=== PATIENT | female | born 1955 | race African-American/Black ===

== ENCOUNTER → 2017-07-28 | Outpatient (CLI) | payer BC ==
--- NOTE | 2017-07-29 16:38 | WOMENS IMAGING REPORT ---
EXAM DESCRIPTION: 3D SCREENING MAMMO BILAT COMPLETED DATE/TIME: 07/28/2017 3:12 pm REASON FOR STUDY: ROUTINE SCREENING; Z12.31 Z12.31 ENCNTR SCREEN MAMMOGRAM FOR MALIGNANT NEOPLASM O F RANCHO COMPARISON: 2010 TECHNIQUE: Standard craniocaudal and mediolateral oblique views of each breast recorded using digita l acquisition and breast tomosynthesis. LIMITATIONS: None. FINDINGS: No masses, calcifications or architectural distortion. No areas of suspicion. Read with the assistance of CAD. .[facility] - R2 Cenova Version 1.3 .[facility] - R2 Cenova Version 1.3 .[facility] - R2 Cenova Version 2.[address] - R2 Cenova Version 2.4 .[facility] - R2 Bright Cutter Version 9.2 IMPRESSION: NORMAL MAMMOGRAM. BIRADS 1. BREAST DENSITY: b. There are scattered areas of fibroglandular density. BIRAD: 1 NEGATIVE RECOMMENDATION: ROUTINE SCREENING COMMENT: The patient has been notified of the results by letter per SA requirements. Additional no tification policies are in place for contacting patient with suspicious or incomplete findings. Quality ID #225: The [employer] recommends an annual screening mammogram for women aged 40 years or over. This facility utilizes a reminder system to ensure that all patients receive reminder letters, and/or direct phone calls for appointments. This includes reminders for routine scr eening mammograms, diagnostic mammograms, or other Breast Imaging Interventions when appropriate. Th is patient will be placed in the appropriate reminder system. The [employer] (ACR) has developed recommendations for screening MRI of the breast s in certain patient populations, to be used in conjunction with mammography. Breast MRI surveillanc e may be appropriate for women with more than 20% lifetime risk of developing breast cancer as deter mined by genetic testing, significant family history of the disease, or history of mantle radiation f or Hodgkins Disease. ACR Practice Guidelines 2008. DBT Technology DBT is a type of tomographic mammography. With conventional mammography, overlapping breast tissue ma y make lesions difficult to detect, even with good compression. DBT uses an x-ray tube that rotates a round the breast, taking images at different angles. These images are then combined to create thin sl ices of the breast that the radiologist can view as a 3D reconstruction. The [employer] unit can perform full-field digital mammograms (2D imaging); or DBT (3D imaging); or both, in a combination mode that quickly performs both the mammogram and the tomosynthesis scan while the breast is still compressed. PQRS 6045F: Fluoroscopic imaging is not utilized for breast tomosynthesis. TECHNICAL DOCUMENTATION: FINDING NUMBER: (1) ASSESSMENT: (1) JOB ID: [id number] [employer]- All Rights Reserved Reading location - IP/workstation name: [email or web address]
== END ==
LOC: WI 14:37
PROVIDERS: ATTEND Internal Medicine
DX: Z12.31 Encounter for screening mammogram for malignant neoplasm of breast (principal)
CPT/HCPCS: 77063; 77067

== ENCOUNTER → 2017-12-22 | Outpatient (CLI) | payer BC ==
--- NOTE | 2017-12-22 15:21 | RADIOLOGY REPORT (SQ) ---
EXAM DESCRIPTION: U/S RETROPERITON (RENAL/AORTA) COMPLETED DATE/TIME: 12/22/2017 2:18 pm REASON FOR STUDY: ABNORMAL KIDNEY FUNCTION R94.4 ABNORMAL RESULTS OF KIDNEY FUNCTION STUDIES COMPARISON: None. TECHNIQUE: Dynamic and static grayscale images acquired of the kidneys and bladder and recorded on P ACS. Additional selected color Doppler and spectral images recorded. LIMITATIONS: None. FINDINGS: RIGHT KIDNEY: Normal size. Normal echogenicity. No solid or suspicious masses. No hydronep hrosis. No calcifications. LEFT KIDNEY: Normal size. Normal echogenicity. No solid or suspicious masses. No hydronephrosis. No calcifications. BLADDER: Decompressed, not evaluated. OTHER FINDINGS: No other significant finding. IMPRESSION: Normal appearance of the bilateral kidneys. TECHNICAL DOCUMENTATION: JOB ID: [id number] [employer]- All Rights Reserved Reading location - IP/workstation name: TECH[employer] [email or web address]
== END ==
LOC: RAD 13:38
PROVIDERS: ATTEND Internal Medicine
DX: R94.4 Abnormal results of kidney function studies (principal)
CPT/HCPCS: 76770

== ENCOUNTER 2018-09-06 12:29 | Observation (INO) | payer BC ==
--- NOTE | 2018-09-06 13:05 | ER Document Report ---
ED Medical Screen (RME) - General Chief Complaint: Shortness Of Breath Stated Complaint: BLOOD PRESSURE ISSUE Time Seen by Provider: 09/06/18 12:56 Primary Care Provider: STEFANIA SNIDER MD [Primary Care Provider] - Follow up as needed TRAVEL OUTSIDE OF THE [place]. IN LAST 30 DAYS: No - HPI Notes: 09/06/18 13:02 Patient is a 63-year-old female with a history of hypertension, CVA, and type 2 diabetes who presents to the emergency department complaining of left-sided headache, elevated blood pressure, and left-sided chest pain that began 2 hours ago. Patient reports having headaches before, but this 1 is worse than usual. Pain does not radiate. Patient states that she does feel some shortness of breath associated. She did take her medicines this morning. Patient states that her blood pressure has improved when she had it checked at the [facility] today. Denies RAY, fever, neck pain, URI, CP, SOB, Abd pain, n/v, diaphoresis, or rash. I have treated and performed a rapid initial assessment of this patient. A comprehensive ED assessment and evaluation of the patient, analysis of test results and completion of medical decision making process will be conducted by additional ED providers. PHYSICAL EXAMINATION: GENERAL: Well-appearing, well-nourished and in no acute distress. A&Ox4. Answers questions appropriately. HEAD: Atraumatic, normocephalic. Non-tender. EYES: Pupils equal round and reactive to light, extraocular movements intact, sclera anicteric, conjunctiva are normal. No nystagmus. ENT: Nares patent and without discharge. oropharynx clear without exudates. No tonsilar hypertrophy or erythema. Moist mucous membranes. NECK: Normal range of motion, supple without lymphadenopathy. No rigidity/meningismus. No midline tenderness. LUNGS: Breath sounds clear to auscultation bilaterally and equal. No wheezes rales or rhonchi. HEART: Regular rate and rhythm without murmurs, rubs, gallops. ABDOMEN: Soft, nontender, nondistended abdomen. Musculoskeletal: Ext's b/l: FROM to passive/active. Strength 5+/5. No deficits noted. No bony tenderness of extremities. Extremities: No cyanosis, clubbing, or edema b/l. Peripheral pulses 2+. Capillary refill less than 2 seconds. No lower extremity asymmetry. Kajal negative bilaterally. NEUROLOGICAL: NIH 0. GCS 15. Cranial nerves grossly intact. Normal speech. Normal sensory, motor exams. Reflexes 2+ b/l. LOLY's negative. Pronator drift negative. Heel/loja, finger/nose wnl. PSYCH: Normal mood, normal affect. SKIN: Warm, Dry, normal turgor, no rashes or lesions noted. - Related Data Allergies/Adverse Reactions: No Known Allergies Allergy (Verified 04/05/17 10:46) Past Medical History - Past Medical History Cardiac Medical History: Reports: Hx Hypertension Denies: Hx Coronary Artery Disease, Hx Heart Attack Pulmonary Medical History: Reports: Hx Pneumonia Denies: Hx Asthma, Hx Bronchitis, Hx COPD, Hx Tuberculosis Neurological Medical History: Denies: Hx Cerebrovascular Accident, Hx Seizures Endocrine Medical History: Reports: Hx Diabetes Mellitus Type 2 Renal/ Medical History: Denies: Hx Peritoneal Dialysis GI Medical History: Musculoskeltal Medical History: Reports Hx Arthritis - hands Infectious Medical History: Past Surgical History: Reports: Hx Cholecystectomy, Hx Genitourinary Surgery, Hx Hysterectomy. Denies: Hx Pacemaker - Immunizations Hx Diphtheria, Pertussis, Tetanus Vaccination: Yes Physical Exam - Vital signs Vitals: Temp Pulse Resp BP Pulse Ox 98.0 F 69 16 146/82 H 97 09/06/18 12:43 09/06/18 12:43 09/06/18 12:43 09/06/18 12:43 09/06/18 12:43 Course - Vital Signs Vital signs: Temp Pulse Resp BP Pulse Ox 98.0 F 69 16 146/82 H 97 09/06/18 12:43 09/06/18 12:43 09/06/18 12:43 09/06/18 12:43 09/06/18 12:43 Doctor's Discharge - Discharge Referrals: STEFANIA SNIDER MD [Primary Care Provider] - Follow up as needed
--- NOTE | 2018-09-06 13:39 | RADIOLOGY REPORT (SQ) ---
EXAM DESCRIPTION: CHEST SINGLE VIEW COMPLETED DATE/TIME: 09/06/2018 1:27 pm REASON FOR STUDY: CP COMPARISON: 04/05/2017 TECHNIQUE: Single frontal radiographic view of the chest acquired. NUMBER OF VIEWS: One view. LIMITATIONS: None. FINDINGS: LUNGS AND PLEURA: No pneumothorax. No consolidation or pleural effusion. MEDIASTINUM AND HILAR STRUCTURES: Stable. HEART AND VASCULAR STRUCTURES: Stable. BONES: No acute findings. HARDWARE: None in the chest. OTHER: No other significant finding. IMPRESSION: NO ACUTE FINDINGS. TECHNICAL DOCUMENTATION: JOB ID: [id number] [place]-72 2010 [employer]- All Rights Reserved Reading location - IP/workstation name: [email or web address]
--- NOTE | 2018-09-06 13:46 | RADIOLOGY REPORT (SQ) ---
EXAM DESCRIPTION: CT HEAD WITHOUT COMPLETED DATE/TIME: 09/06/2018 1:35 pm REASON FOR STUDY: left RAY, h/o CVA COMPARISON: None. TECHNIQUE: Axial images acquired through the brain without intravenous contrast. Images reviewed wi th bone, brain and subdural windows. Additional sagittal and coronal reconstructions were generated. Images stored on PACS. All CT scanners at this facility use dose modulation, iterative reconstruction, and/or weight based d osing when appropriate to reduce radiation dose to as low as reasonably achievable (ALARA). [facility]: Dose Right [facility]: CareDose [facility]: Dose Right [facility]: Teradose 4D [facility]: Smart [employer] RADIATION DOSE: CT Rad equipment meets quality standard of care and radiation dose reduction techniq ues were employed. CTDIvol: 53.2 mGy. DLP: 1124 mGy-cm. mGy. LIMITATIONS: None. FINDINGS: VENTRICLES: Prominent. CEREBRUM: No masses. No hemorrhage. No midline shift. Areas of low density in the white matter mos t likely due to chronic micro-vascular ischemic change. No evidence for acute infarction. CEREBELLUM: No masses. No hemorrhage. No alteration of density. No evidence for acute infarction. EXTRAAXIAL SPACES: Mild age-related involutional change. No fluid collections. No masses. ORBITS AND GLOBE: No intra- or extraconal masses. Normal contour of globe without masses. CALVARIUM: No fracture. PARANASAL SINUSES: Mucosal thickening maxillary sinuses. SOFT TISSUES: No mass or hematoma. OTHER: No other significant finding. IMPRESSION: MILD CHRONIC CHANGES OF ATROPHY AND MICROVASCULAR ISCHEMIA. NO ACUTE PROCESS. EVIDENCE OF ACUTE STROKE: NO. TECHNICAL DOCUMENTATION: JOB ID: [id number] Quality ID # [id number]: Final reports with documentation of one or more dose reduction techniques (e.g., Au tomated exposure control, adjustment of the mA and/or kV according to patient size, use of iterative reconstruction technique) 2010 [email or web address]- All Rights Reserved Reading location - IP/workstation name: [email or web address]
[2018-09-06 14:16] LABS: ALANINE AMINOTRANSFERASE 30 U/L (9-52); ALBUMIN 4.3 g/dL (3.5-5.0); ALKALINE PHOSPHATASE 129 U/L (38-126); ANION GAP 11 (5-19); ASPARTATE AMINO TRANSFERASE 20 U/L (14-36); BILIRUBIN,DIRECT 0.3 mg/dL (0.0-0.4); BILIRUBIN,TOTAL 0.6 mg/dL (0.2-1.3); BLOOD UREA NITROGEN 23 mg/dL (7-20); CALCIUM 10.1 mg/dL (8.4-10.2); CARBON DIOXIDE 26 mmol/L (22-30); CHLORIDE 99 mmol/L (98-107); GLUCOSE 323 mg/dL (75-110); POTASSIUM 4.3 mmol/L (3.6-5.0); SODIUM 136.2 mmol/L (137-145); TOTAL PROTEIN 7.9 g/dL (6.3-8.2)
[2018-09-06 14:20] LABS: INTERNATIONAL RATION (INR) 0.89; PROTHROMBIN TIME 12.5 SEC (11.4-15.4)
[2018-09-06 14:21] LABS: PARTIAL THROMBOPLASTIN TIME 29.2 SEC (23.5-35.8)
[2018-09-06 14:23] LABS: ABSOLUTE EOSINOPHILS # (AUTO) 0.2 10^3/uL (0.0-0.6); ABSOLUTE MONOCYTES (AUTO) 0.4 10^3/uL (0.1-1.4); ABSOLUTE NEUT (AUTO) 5.9 10^3/uL (1.7-8.2); BASOPHILS % (AUTO) 0.6 % (0-2); EOSINOPHILS % (AUTO) 2.5 % (0-6); HEMATOCRIT 44.7 % (36.0-47.0); HEMOGLOBIN 14.6 g/dL (12.0-15.5); LYMPHOCYTES % (AUTO) 13.1 % (13-45); MEAN CORPUSCULAR HEMOGLOBIN 27.6 pg (27.0-33.4); MEAN CORPUSCULAR HGB CONC 32.6 g/dL (32.0-36.0); MEAN CORPUSCULAR VOLUME 85 fl (80-97); MONOCYTES % (AUTO) 4.9 % (3-13); PLATELET COUNT 204 10^3/uL (150-450); RED BLOOD COUNT 5.28 10^6/uL (3.72-5.28); RED CELL DISTRIBUTION WIDTH 13.9 % (11.5-14.0); SEGMENTED NEUTROPHILS % (AUTO) 78.9 % (42-78); TOTAL CELLS COUNTED % (AUTO) 100 %; WHITE BLOOD COUNT 7.5 10^3/uL (4.0-10.5)
[2018-09-06] MEDS ORDERED: DIAZEPAM INJ 10 MG/2 ML DISP.SYRIN IV ONE (15:19)
[2018-09-06] MEDS ORDERED: ONDANSETRON HCL INJ/PF 4 MG/2 ML SDV IV ONE (15:19)
[2018-09-06] MEDS ORDERED: NORMAL SALINE 1000 ML 1,000 ML IV ONE (15:20)
--- NOTE | 2018-09-06 15:34 | EKG REPORT ---
SEVERITY:- ABNORMAL ECG - SINUS RHYTHM LEFT VENTRICULAR HYPERTROPHY : Confirmed by: Sarbjit Koenig MD 06-Sep-2018 15:33:44
[2018-09-06] MEDS ORDERED: ACETAMINOPHEN 325 MG TABLET PO ONE (16:07)
[2018-09-06] MEDS ORDERED: KETOROLAC TROMETHAMINE INJ/PF 30 MG/1 ML SDV IV ONE (16:08)
[2018-09-06] MEDS ORDERED: MORPHINE SULFATE 10 MG/ML INJ IV ONE (17:26)
[2018-09-06] MEDS ORDERED: LIDOCAINE 1% INJ-PF (10 MG/ML) 30 ML SDV ONE (17:57)
[2018-09-06 19:40] LABS: APPEARANCE ALL TUBES CLEAR; COLOR ALL TUBES COLORLESS; CSF TOTAL VOLUME 4.5 CC; CSF TUBE NUMBER 1; VOLUME TUBE 1 1.5 CC
[2018-09-06 19:41] LABS: GLUCOSE,CSF 149 mg/dL (40-70); PROTEIN,CSF 60 mg/dL (12-60); RED BLOOD CELL,CSF 17 /uL (0-10); WHITE BLOOD CELL,CSF 2 /uL (0-5)
--- NOTE | 2018-09-06 19:46 | ER Document Report ---
ED General - General Mode of Arrival: Ambulatory Information source: Patient, Relative TRAVEL OUTSIDE OF THE [place] IN LAST 30 DAYS: No - HPI Onset: Other - Over 2 hours prior to arrival Quality of pain: No pain, Achy, Sharp, Stabbing Severity: Moderate Pain Level: 4 Associated symptoms: Chest pain, Nonproductive cough, Headache, Shortness of breath. denies: Earache Exacerbated by: Denies Relieved by: Denies Similar symptoms previously: Yes Recently seen / treated by doctor: No <WALDO RIBERA - Last Filed: 09/06/18 20:08> <SAMMIE DEGROOT - Last Filed: 09/07/18 01:02> <BIGG SANCHEZ - Last Filed: 09/07/18 11:37> - General Chief Complaint: Shortness Of Breath Stated Complaint: BLOOD PRESSURE ISSUE Time Seen by Provider: 09/06/18 12:56 Notes: Patient is a 63-year-old female comes emergency room with complaint of dizziness with headache that originated on the left side of the head. 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 The headaches seem to be on left-sided frontal only. She also started with some left-sided chest pain as well. She called her headache something is slightly unbelievable because it is different than the presentation of the rest of her headaches. She did not call it a thunderclap headache she did not call at the worst headache of her life she does call that not really believable. 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 Where she had no residual problem. states that when she was at [employer] and they checked her blood pressure that the bottom number was 400 but they do not remember what the reading was. She has a history of hypertension she has history of headaches that are usually handled with Tylenol. She also has a history of diabetes mellitus type 2. Patient when asked if she takes any type of anticoagulants she states she is supposed to be on aspirin a day but she might take it sometimes and other times she might not. She does not remember the last time she took the aspirin. The guesstimate of onset until the time presented is over 2 hours. (WALDO RIBERA) - Related Data Allergies/Adverse Reactions: No Known Allergies Allergy (Verified 04/05/17 10:46) Past Medical History - General Information source: Patient, Relative, [facility] Records - Social History Smoking Status: Never Smoker Cigarette use (# per day): No Chew tobacco use (# tins/day): No Smoking Education Provided: No Frequency of alcohol use: None Drug Abuse: None Lives with: Family Family History: Reviewed & Not Pertinent Patient has suicidal ideation: No Patient has homicidal ideation: No - Past Medical History Cardiac Medical History: Reports: Hx Hypertension Denies: Hx Coronary Artery Disease, Hx Heart Attack Pulmonary Medical History: Reports: Hx Pneumonia Denies: Hx Asthma, Hx Bronchitis, Hx COPD, Hx Tuberculosis Neurological Medical History: Denies: Hx Cerebrovascular Accident, Hx Seizures Endocrine Medical History: Reports: Hx Diabetes Mellitus Type 2 Renal/ Medical History: Denies: Hx Peritoneal Dialysis GI Medical History: Musculoskeletal Medical History: Reports Hx Arthritis - hands Infectious Medical History: Past Surgical History: Reports: Hx Cholecystectomy, Hx Genitourinary Surgery, Hx Hysterectomy. Denies: Hx Pacemaker - Immunizations Hx Diphtheria, Pertussis, Tetanus Vaccination: Yes Hx Pneumococcal Vaccination: 06/02/09 <WALDO RIBERA - Last Filed: 09/06/18 20:08> Review of Systems - Review of Systems Constitutional: No symptoms reported EENT: No symptoms reported Cardiovascular: See HPI, Chest pain Respiratory: See HPI, Short of breath Gastrointestinal: No symptoms reported Genitourinary: No symptoms reported Female Genitourinary: No symptoms reported Musculoskeletal: No symptoms reported Skin: No symptoms reported Hematologic/Lymphatic: No symptoms reported Neurological/Psychological: See HPI, Headaches -: Yes All other systems reviewed and negative <WALDO RIBERA - Last Filed: 09/06/18 20:08> Physical Exam - Vital signs Interpretation: Hypertensive <WALDO RIBERA - Last Filed: 09/06/18 20:08> - Vital signs Vitals: Temp Pulse Resp BP Pulse Ox 98.0 F 69 16 146/82 H 97 09/06/18 12:43 09/06/18 12:43 09/06/18 12:43 09/06/18 12:43 09/06/18 12:43 - Notes Notes: PHYSICAL EXAMINATION: GENERAL: Patient is well-nourished well-developed 63-year-old obese female who is in no apparent distress on physical exam today. Patient does appear to be somewhat uncomfortable and has having a hard time finding a position of comfort secondary to her headache. HEAD: Atraumatic, normocephalic. EYES: Pupils equal round and reactive to light, extraocular movements intact, conjunctiva are normal. ENT: Nares patent, oropharynx clear without exudates. Moist mucous membranes. NECK: Normal range of motion, supple without lymphadenopathy LUNGS: Breath sounds clear to auscultation bilaterally and equal. No wheezes rales or rhonchi. HEART: patient is a regular rate and rhythm or heart no murmurs appreciated on auscultation. Pulses are equal bilaterally ABDOMEN: examination patient's abdomen shows she has bowel sounds all 4 quads. She is non-tender in all 4 quads as well. Midepigastric mild tenderness is noted. There are no pulsatile masses appreciated on abdominal exam. Female : deferred Musculoskeletal: Normal range of motion, no pitting or edema. No cyanosis. NEUROLOGICAL: Cranial nerves grossly intact. Normal speech. Normal sensory, motor exams Patient's NIH score is 0. Patient swallow study was negative. PSYCH: Normal mood, normal affect. SKIN: Warm, Dry, normal turgor, no rashes or lesions noted. (WALDO RIBERA) Course - Laboratory Result Diagrams: 09/06/18 13:46 09/06/18 13:46 - Transfer of Care Care transferred to following provider: Sammie Degroot <WALDO RIBERA - Last Filed: 09/06/18 20:08> - Laboratory Result Diagrams: 09/06/18 13:46 09/06/18 13:46 <SAMMIE DEGROOT - Last Filed: 09/07/18 01:02> - Laboratory Result Diagrams: 09/06/18 13:46 09/06/18 13:46 <BIGG SANCHEZ - Last Filed: 09/07/18 11:37> - Re-evaluation Re-evalutation: 09/06/18 20:11 Patient stay here has been fairly unremarkable. I discussed the case with Dr. Arreola and she felt a spinal tap was necessary. I contacted the radiologist to see what she would prefer CT of the head or MRI MRA of the head and neck and he informed me that if the tap was negative then he would suggest the MRI MRA which we have and are waiting for. Reexamination patient shows that she is still complaining of some anterior chest pain we are repeating the cardiac enzymes and EKG again discussing the case with Dr. Lino check CT of the chest would be warranted to rule out any type of a dissection possibility as well. Patient is comfortable at this point. I have also written some fluids again more likely this time 250 since he is going back for CTA of the chest and renal functions were slightly off at 1.3 even though she received a liter of fluids already. I have handed off the patient to Sammie Degroot I have taken him in to meet the patient and he is stating done a physical examination. After his examination was complete I informed him that I have added the orders as mentioned above including some nitro sublingual for the chest pain. He will monitor patient closely and inform me of any changes per my personal benefit did not patient is doing. (WALDO RIBERA) 09/06/18 20:35 Care has been taken over of this patient at this time. Patient looks well at this time. She states that her headache has improved some. She does continue to have some chest pain. On exam she has slight weakness in the right upper extremity compared to the left which the patient tells me is her normal from previous CVA. The remainder of her neurological exam is normal. She has no pronator drift. She does still have some complaints of chest pain. Repeat EKG has been ordered. MRI, MRA of the head and neck showed no acute stroke, no bleeding, no dissection. There is some stenosis noted. CTA of the chest and abdomen has currently been ordered and currently pending at this time. CSF shows some RBCs, with a decreased from tube 1-4 and it was a traumatic tap. This is not consistent with subarachnoid hemorrhage. We will continue to monitor. 09/06/18 21:10 Repeat EKG shows a rate of 67, sinus rhythm. Left ventricular hypertrophy. There is no ST elevation or depression, no STEMI, no change from previous EKG done earlier today. 09/07/18 01:02 All of the patient's labs and imaging are negative for any significant findings. Patient denies any chest pain currently. She is no signs of acute stroke. This point believe the patient should be admitted to the hospital for further evaluation and management her chest pain. She will be admitted to the hospitalist for chest pain rule out. I discussed the case with the hospitalist who is accepted admission. (SAMMIE DEGROOT) 09/07/18 11:36 I did personally see and examine this 63 yo female patient who is complaining of a relatively rapid onset of a typical headache associated with chest pain. She does not have any focal neurologic deficits that are new from baseline. Patient complains of persistent dizziness though there is no evidence of dizziness on her exam or looking at her movements. There is no facial droop. Only deficit is mild right-sided weakness that she states is baseline from her old stroke. I do agree with documentation of physical examination and management of this patient. I saw him in conjunction with the APCs Waldo Ribera and Dr. Degroot. I did personally form the lumbar puncture to rule out subarachnoid hemorrhage. (BIGG SANCHEZ) - Vital Signs Vital signs: Temp Pulse Resp BP Pulse Ox 97.6 F 64 20 161/72 H 94 09/07/18 08:48 09/07/18 08:48 09/07/18 08:48 09/07/18 08:48 09/07/18 08:48 - Laboratory Laboratory results interpreted by me: 09/06/18 09/06/18 09/06/18 13:46 13:46 18:15 Seg Neutrophils % 78.9 H Sodium 136.2 L BUN 23 H Est GFR ( Amer) 59 L Est GFR (Non-Af Amer) 49 L Glucose 323 H Alkaline Phosphatase 129 H CSF Glucose 149 H Procedures - Lumbar Puncture Lumbar puncture Consent obtained: Yes Lumbar puncture pre-procedure: Sterile PPE donned, Chloraprep applied, Sterile drapes applied Patient position: Sitting Needle size: 20 Lumbar puncture location: L4-L5 Anesthetic type: 1% Lidocaine mL's of anesthetic: 2 Amount/type of drainage: 8 mL, slightly blood tinged and then clears Number of attempts: 1 Complications: No <BIGG SANCHEZ - Last Filed: 09/07/18 11:37> Discharge <WALDO RIBERA - Last Filed: 09/06/18 20:08> - Discharge Admitting Provider: Mino (Hospitalist) Unit Admitted: Telemetry <SAMMIE DEGROOT - Last Filed: 09/07/18 01:02> <BIGG SANCHEZ - Last Filed: 09/07/18 11:37> - Discharge Clinical Impression: Chest pain Qualifiers: Chest pain type: unspecified Qualified Code(s): R07.9 - Chest pain, unspecified Headache Qualifiers: Headache type: unspecified Headache chronicity pattern: acute headache In tractability: not intractable Qualified Code(s): R51 - Headache Condition: Stable Disposition: ADMITTED OBSERVATION
--- NOTE | 2018-09-06 19:53 | RADIOLOGY REPORT (SQ) ---
EXAM DESCRIPTION: MRI HEAD WITHOUT COMPLETED DATE/TIME: 09/06/2018 7:33 pm REASON FOR STUDY: Infarction large vessel/small left COMPARISON: None. TECHNIQUE: Multiplanar imaging includes non-contrasted T1, T2, FLAIR, and diffusion with ADC map seq uences. Images stored on PACS. LIMITATIONS: None. FINDINGS: ANATOMY: No anomalies. Normal vascular flow voids. Pituitary fossa normal. CSF SPACES: Atrophy induced prominence of ventricles and CSF spaces. CEREBRUM: High signal intensity lesions scattered throughout the white matter on FLAIR imaging with d istribution suggesting micro-vascular ischemic changes. No evidence of hemorrhage, mass, or extraaxi al fluid collection. POSTERIOR FOSSA: No signal alteration. No hemorrhage. No edema, masses or mass effect. Internal aleksander tory canals, cerebello-pontine angles, mastoids normal. DIFFUSION IMAGING: Negative for acute or sub-acute infarction. ORBITS: No masses. Globes normal. PARANASAL SINUSES: No fluid levels. Mucosa normal. OTHER: No other significant finding. IMPRESSION: Negative for acute or sub-acute infarction.High signal intensity lesions scattered throu ghout the white matter on FLAIR imaging with distribution suggesting micro-vascular ischemic changes. No evidence of hemorrhage, mass, or extraaxial fluid collection. EVIDENCE OF ACUTE STROKE: NO. TECHNICAL DOCUMENTATION: JOB ID: [id number] [place]-72 2010 [employer]- All Rights Reserved Reading location - IP/workstation name: [email or web address]
[2018-09-06 19:55] LABS: APPEARANCE ALL TUBES CLEAR; COLOR ALL TUBES COLORLESS; CSF TOTAL VOLUME 4.5 CC; CSF TUBE NUMBER 4; RED BLOOD CELL,CSF 4 /uL (0-10); VOLUME TUBE 1 1.5 CC
[2018-09-06 19:56] LABS: WHITE BLOOD CELL,CSF 1 /uL (0-5)
--- NOTE | 2018-09-06 19:57 | RADIOLOGY REPORT (SQ) ---
EXAM DESCRIPTION: MRA HEAD WITHOUT COMPLETED DATE/TIME: 09/06/2018 7:33 pm REASON FOR STUDY: infarction COMPARISON: None. TECHNIQUE: Axial 3-D [id number] acquisition imaging performed through the brain in the area of t he [place] of [place]. Images reformatted using 3-D MIPS. LIMITATIONS: None. FINDINGS: SOURCE IMAGES: No unexpected findings on source images. No large masses. 3-D MIP: No aneurysm. Atretic or absent left posterior communicating artery. Short segment moderate stenosis in the P2 segment of the left posterior cerebral artery. No other Significant stenosis. OTHER: No other significant finding. IMPRESSION: No aneurysm.Atretic or absent left posterior communicating artery. Short segment modera te stenosis in the P2 segment of the left posterior cerebral artery. No other Significant stenosis. TECHNICAL DOCUMENTATION: JOB ID: [id number] [place]-[id number] 2010 [employer]- All Rights Reserved Reading location - IP/workstation name: [email or web address]
[2018-09-06] MEDS ORDERED: NORMAL SALINE 250 ML IV ONE (19:59)
[2018-09-06] MEDS ORDERED: NITROGLYCERIN 0.4 MG/TAB 25 TAB/BOTTLE SL PRN (20:02)
--- NOTE | 2018-09-06 20:18 | RADIOLOGY REPORT (SQ) ---
EXAM DESCRIPTION: MR NECK AND [place] OF [place] ANGIOGRAPHY WITHOUT IV CONTRAST COMPLETED DATE/TME: 09/06/2018 17:24 CLINICAL HISTORY: 63 years, Female, infarction PROCEDURE: CLINICAL HISTORY: 63 years Female infarction COMPARISON: None. TECHNIQUE: Flow sensitive imaging obtained of the vessels of the neck and [place] of [place]. MIP reformatted images obtained. NASCET criteria utilized for the evaluation of any stenotic lesions. FINDINGS: There is approximately 60% narrowing of the origin of the right ICA. There is less intense signal in the distal vertebral arteries and basilar artery, and in the left distal ICA, relative to the right ICA, but no other focal stenosis is seen. No definite dissection. Motion limits detail. The vessels of the neck are otherwise normal with no evidence of flow-limiting stenosis, vascular malformation, or aneurysm. IMPRESSION: There is narrowing of the origin of the right ICA. This may diminish flow in the right ICA, creating asymmetric flow causing differential intensity in the vessels as described above. However there is no other significant stenosis or evidence of dissection seen in the vessels of the neck or [place] of [place]. This apparent asymmetry could alternatively be technical artifact. No other significant abnormality.
--- NOTE | 2018-09-06 21:13 | EKG REPORT ---
SEVERITY:- ABNORMAL ECG - SINUS RHYTHM PROBABLE LEFT ATRIAL ABNORMALITY LEFT VENTRICULAR HYPERTROPHY : Confirmed by: Sarbjit Koenig MD 06-Sep-2018 21:12:48
--- NOTE | 2018-09-06 22:44 | RADIOLOGY REPORT (SQ) ---
EXAM DESCRIPTION: CT ABDOMEN PELVIS WITHOUT THEN WITH IV CONTRAST, CT CHEST ANGIOGRAPHY WITHOUT THEN WITH IV CONTRAST COMPLETED DATE/TME: 09/06/2018 00:00 (accession [id number]), 09/06/2018 19:58 (accession [id number]) CLINICAL HISTORY: 63 years Female, SOB / INCREASED BP / DISSECTION?? Comparison: CT PET, November 10, 2015 Technique: IV contrast. Coronal and sagittal reformat. This exam was performed according to our departmental dose-optimization program, which includes automated exposure control, adjustment of the mA and/or kV according to patient size and/or use of iterative reconstruction technique. [facility]: Dose Right [facility]: CareDose [facility]: Dose Right [facility]: Teradose 4D [facility]: Feedo LIMITATIONS: None Findings: CTA, aorta:No evidence of significant aneurysm, dissection, or occlusion. No evidence of abdominal aortic aneurysm, dissection, or occlusion. Scattered calcified atherosclerotic plaque. Patent great vessels of the abdomen and pelvis including the celiac, mesenteric, and renal arteries. No vasculitides. No significant thrombus/embolus. No active hemorrhage/hematoma. Vascular system appears otherwise intact. No evidence of pulmonary embolus. No right ventricular strain. Atherosclerotic plaque at the origin of the left renal artery. No ascites. Hepatic steatosis.Cholecystectomy. Colonic diverticulosis.Stool retention. Inferior thorax, liver, pancreas, spleen, adrenals, renal system, gastrointestinal tract, pelvic organs, lymphatics, vasculature, and musculoskeleton appear otherwise unremarkable. IMPRESSION: No acute findings.
--- NOTE | 2018-09-06 22:44 | RADIOLOGY REPORT (SQ) ---
EXAM DESCRIPTION: CT ABDOMEN PELVIS WITHOUT THEN WITH IV CONTRAST, CT CHEST ANGIOGRAPHY WITHOUT THEN WITH IV CONTRAST COMPLETED DATE/TME: 09/06/2018 00:00 (accession [id number]), 09/06/2018 19:58 (accession [id number]) CLINICAL HISTORY: 63 years Female, SOB / INCREASED BP / DISSECTION?? Comparison: CT PET, November 10, 2015 Technique: IV contrast. Coronal and sagittal reformat. This exam was performed according to our departmental dose-optimization program, which includes automated exposure control, adjustment of the mA and/or kV according to patient size and/or use of iterative reconstruction technique. [facility]: Dose Right [facility]: CareDose [facility]: Dose Right [facility]: Teradose 4D [facility]: Sentrinsic LIMITATIONS: None Findings: CTA, aorta:No evidence of significant aneurysm, dissection, or occlusion. No evidence of abdominal aortic aneurysm, dissection, or occlusion. Scattered calcified atherosclerotic plaque. Patent great vessels of the abdomen and pelvis including the celiac, mesenteric, and renal arteries. No vasculitides. No significant thrombus/embolus. No active hemorrhage/hematoma. Vascular system appears otherwise intact. No evidence of pulmonary embolus. No right ventricular strain. Atherosclerotic plaque at the origin of the left renal artery. No ascites. Hepatic steatosis.Cholecystectomy. Colonic diverticulosis.Stool retention. Inferior thorax, liver, pancreas, spleen, adrenals, renal system, gastrointestinal tract, pelvic organs, lymphatics, vasculature, and musculoskeleton appear otherwise unremarkable. IMPRESSION: No acute findings.
[2018-09-07] MEDS ORDERED: MAGNESIUM HYDROXIDE SUSP 30 ML UDCUP PO PRN (00:20)
[2018-09-07] MEDS ORDERED: MAG HYDROX/AL HYDROX/SIMETH SUSP 30 ML UDCUP PO PRN (00:20)
[2018-09-07] MEDS ORDERED: ONDANSETRON HCL INJ/PF 4 MG/2 ML SDV IV PRN (00:20)
[2018-09-07] MEDS ORDERED: MECLIZINE HCL 25 MG TABLET PO PRN (00:26)
[2018-09-07] MEDS ORDERED: MORPHINE SULFATE 10 MG/ML INJ IV PRN (01:13)
--- NOTE | 2018-09-07 03:18 | Progress Note ---
Provider Note Provider Note: The patient was seen and examined and the chart was reviewed. Orders were placed for admission. I was not aware that the patient's primary care physician is Dr. Savage and therefore I discussed the case with him and he will take over the admission process.
--- NOTE | 2018-09-07 06:43 | EKG REPORT ---
SEVERITY:- ABNORMAL ECG - SINUS RHYTHM LEFT VENTRICULAR HYPERTROPHY : Confirmed by: Sarbjit Koenig MD 07-Sep-2018 06:42:25
[2018-09-07 08:09] LABS: TRIGLYCERIDES 186 mg/dL (<150)
[2018-09-07 08:10] LABS: CHOLESTEROL 199.62 mg/dL (0-200)
[2018-09-07 08:13] LABS: VLDL CHOLESTEROL 37.2 mg/dL (10-31)
[2018-09-07 08:19] LABS: DIRECT LDL 108 mg/dL (<100)
[2018-09-07] MEDS ORDERED: DEXTROSE 50%-WATER 25 GM/50 ML DISP.SYRIN IV PRN ×2 (08:39)
[2018-09-07] MEDS ORDERED: GLUCAGON,HUMAN RECOMB 1 MG INJ IM PRN (08:39)
[2018-09-07] MEDS ORDERED: DEXTROSE 40% GEL 15 GM TUBE PO PRN ×2 (08:39)
[2018-09-07] MEDS ORDERED: INSULIN LISPRO 100 UNIT/ML 3 ML VIAL SUBCUT SCH (09:30)
[2018-09-07] MEDS: PANTOPRAZOLE SODIUM 40 MG TABLET.DR PO SCH ×2 (09:46→17:01)
[2018-09-07] MEDS: ENOXAPARIN SODIUM INJ 40 MG/0.4 ML DISP.SYRIN SUBCUT SCH (09:46)
[2018-09-07] MEDS: AMLODIPINE BESYLATE 10 MG TABLET PO SCH (09:50)
[2018-09-07] MEDS: ATENOLOL 50 MG TABLET PO SCH ×2 (13:51→22:10)
[2018-09-07] MEDS: NORMAL SALINE 1000 ML 1,000 ML IV PRN (13:52)
[2018-09-07] MEDS: ACETAMINOPHEN 325 MG TABLET PO PRN (14:01)
[2018-09-07] MEDS: INSULIN LISPRO 100 UNIT/ML 3 ML VIAL SUBCUT SCH ×3 (14:03→22:09)
--- NOTE | 2018-09-07 22:11 | PDOC CONSULTATION ---
Consultation-Blank Consultation: CARDIOLOGY CONSULTATION by Dr. Arina Ramirez on 09/07/2018. Patient seen at 10:30 AM. 60 minutes spent on this patient with more than 50% of time spent in direct patient care. REASON FOR CONSULTATION: Patient with chest pain. Assess possible cardiac etiology.
[2018-09-07] MEDS ORDERED: [UNRECOGNIZED DRUG - OTHER] PO SCH (22:30)
[2018-09-07] MEDS ORDERED: METFORMIN HCL PO SCH (22:30)
[2018-09-07] MEDS ORDERED: EMPAGLIFLOZIN PO SCH (22:30)
--- NOTE | 2018-09-07 22:44 | PDOC H&P ---
History of Present Illness Admission Date/PCP: 09/07/18 01:17 STEFANIA SNIDER MD History of Present Illness: JUAN C HASSAN is a 63 year old female,She came to the emergency room for e valuation of left sided headache of acute onset. She stated that [facility] when she had episode of acute onset headache very intense, it was associated with chest pain but the chest pain is reproducible. In the emergency room she was extensively evaluated with CTA chest MRA of the head lumbar puncture.The evaluation was negative.There was no xanthochromia of the CSF, the pattern of the headache is not a thunderclap headache. The ED physician wanted patient admitted for observation of the chest pain , the chest pain is noncardiac in nature it is reproducible on palpation of the chest wall.Patient is a diabetic poorly controlled, noncompliant with the diabetes care, she does not follow regularly in the office Past Medical History Cardiac Medical History: Reports: Hypertension Pulmonary Medical History: Reports: Pneumonia Endocrine Medical History: Reports: Diabetes Mellitus Type 2 GI Medical History: Musculoskeltal Medical History: Reports: Arthritis - hands Hematology: Past Surgical History Past Surgical History: Reports: Cholecystectomy, Hysterectomy Social History Lives with: Family Smoking Status: Never Smoker Frequency of Alcohol Use: None Hx Recreational Drug Use: No Drugs: None Hx Prescription Drug Abuse: No - Advance Directive Resuscitation Status: Full Code Family History Family History: Reviewed & Not Pertinent Parental Family History Reviewed: Yes Children Family History Reviewed: Yes Sibling(s) Family History Reviewed.: Yes Medication/Allergy Home Medications: Aspirin [Ecotrin 81 mg EC Tablet] 81 mg PO DAILY 09/07/18 Atenolol [Tenormin 50 mg Tablet] 50 mg PO Q12 09/07/18 Empagliflozin/Metformin HCl [Synjardy Xr 25-1,000 mg Tablet] 1 tab PO DAILY 09/07/18 Ergocalciferol (Vitamin D2) [Drisdol 50,000 unit (1.25MG) Capsule] 50,000 unit PO MO@1000 09/07/18 Furosemide [Lasix 40 mg Tablet] 40 mg PO DAILY 09/07/18 Glipizide [Glucotrol 10 mg Tablet] 10 mg PO DAILY 09/07/18 Ibuprofen/Famotidine [Duexis 800-26.6 mg Tablet] 1 tab PO TID 09/07/18 Polyethylene Glycol 3350 [Miralax Powder 17 gm/Packet] 1 packet PO DAILY 09/07/18 Simvastatin [Zocor 20 mg Tablet] 20 mg PO QHS 09/07/18 Allergies/Adverse Reactions: No Known Allergies Allergy (Verified 04/05/17 10:46) Review of Systems Constitutional: PRESENT: headache(s). ABSENT: chills, fever(s), weight gain, weight loss Eyes: ABSENT: visual disturbances Ears: ABSENT: hearing changes Cardiovascular: PRESENT: chest pain. ABSENT: dyspnea on exertion, edema, orthropnea, palpitations Respiratory: ABSENT: cough, hemoptysis Gastrointestinal: ABSENT: abdominal pain, constipation, diarrhea, hematemesis, hematochezia, nausea, vomiting Genitourinary: ABSENT: dysuria, hematuria Musculoskeletal: ABSENT: joint swelling Integumentary: ABSENT: rash, wounds Neurological: ABSENT: abnormal gait, abnormal speech, confusion, dizziness, focal weakness, syncope Psychiatric: ABSENT: anxiety, depression, homidical ideation, suicidal ideation Endocrine: ABSENT: cold intolerance, heat intolerance, menstrual abnormalities, polydipsia, polyuria Hematologic/Lymphatic: ABSENT: easy bleeding, easy bruising, lymphadenopathy Physical Exam Vital Signs: Temp Pulse Resp BP Pulse Ox 98.2 F 71 20 148/60 H 96 09/07/18 16:17 09/07/18 19:00 09/07/18 16:17 09/07/18 16:17 09/07/18 16:17 Intake & Output 09/06/18 09/07/18 09/08/18 06:59 06:59 06:59 Intake Total 1000 774 Balance 1000 774 Weight 85.6 kg General appearance: PRESENT: no acute distress, well-developed, well-nourished Head exam: PRESENT: atraumatic, normocephalic Eye exam: PRESENT: conjunctiva pink, EOMI, PERRLA Ear exam: PRESENT: normal external ear exam Mouth exam: PRESENT: moist, tongue midline Neck exam: PRESENT: full ROM Respiratory exam: PRESENT: clear to auscultation [place]ison Cardiovascular exam: PRESENT: RRR, +S1, +S2, other - chest wall tenderness Pulses: PRESENT: normal dorsalis pedis pul, +2 pedal pulses bilateral Vascular exam: PRESENT: normal capillary refill GI/Abdominal exam: PRESENT: normal bowel sounds, soft Rectal exam: PRESENT: deferred Neurological exam: PRESENT: alert, CN II-XII grossly intact Psychiatric exam: PRESENT: appropriate affect, normal mood Skin exam: PRESENT: dry, intact, warm Results Laboratory Results: 09/06/18 13:46 09/06/18 13:46 09/07/18 07:34 Triglycerides 186 H Cholesterol 199.62 LDL Cholesterol Direct 108 H VLDL Cholesterol 37.2 H HDL Cholesterol 25 L 09/06/18 09/06/18 13:46 21:30 Troponin I < 0.012 < 0.012 Impressions: Abdomen/Pelvis CTA 09/06/18 00:00 IMPRESSION: No acute findings. Chest X-Ray 09/06/18 13:01 IMPRESSION: NO ACUTE FINDINGS. Head CT 09/06/18 13:02 IMPRESSION: MILD CHRONIC CHANGES OF ATROPHY AND MICROVASCULAR ISCHEMIA. NO ACUTE PROCESS. EVIDENCE OF ACUTE STROKE: NO. Head MRI 09/06/18 17:20 IMPRESSION: Negative for acute or sub-acute infarction.High signal intensity lesions scattered throughout the white matter on FLAIR imaging with distribution suggesting micro-vascular ischemic changes. No evidence of hemorrhage, mass, or extraaxial fluid collection. EVIDENCE OF ACUTE STROKE: NO. Brain MRI with MRA 09/06/18 17:24 IMPRESSION: No aneurysm.Atretic or absent left posterior communicating artery. Short segment moderate stenosis in the P2 segment of the left posterior cerebral artery. No other Significant stenosis. Neck MRA 09/06/18 17:24 IMPRESSION: There is narrowing of the origin of the right ICA. This may diminish flow in the right ICA, creating asymmetric flow causing differential intensity in the vessels as described above. However there is no other significant stenosis or evidence of dissection seen in the vessels of the neck or [place]. This apparent asymmetry could alternatively be technical artifact. No other significant abnormality. Chest/Abdomen CTA 09/06/18 19:58 IMPRESSION: No acute findings. Assessment & Plan - Diagnosis (1) Chest pain Qualifiers: Chest pain type: unspecified Qualified Code(s): R07.9 - Chest pain, unspecified Is this a current diagnosis for this admission?: Yes Plan: The chest pain is atypical, it is a chest wall pain very tender on palpation (2) Headache Qualifiers: Headache type: unspecified Headache chronicity pattern: acute headache Intractability: not intractable Qualified Code(s): R51 - Headache Is this a current diagnosis for this admission?: Yes Plan: The etiology of the headache is not clear
[2018-09-07] MEDS ORDERED: ERGOCALCIFEROL (VITAMIN D2) 50000 UNIT (1.25 MG) CAPSULE PO ONE (23:00)
[2018-09-07] MEDS ORDERED: SIMVASTATIN 10 MG TABLET PO ONE (23:00)
[2018-09-08 05:25] LABS: ABSOLUTE EOSINOPHILS # (AUTO) 0.2 10^3/uL (0.0-0.6); ABSOLUTE LYMPHOCYTES (AUTO) 0.8 10^3/uL (0.5-4.7); ABSOLUTE MONOCYTES (AUTO) 0.4 10^3/uL (0.1-1.4); BASOPHILS % (AUTO) 0.6 % (0-2); EOSINOPHILS % (AUTO) 4.7 % (0-6); HEMATOCRIT 36.7 % (36.0-47.0); LYMPHOCYTES % (AUTO) 18.6 % (13-45); MEAN CORPUSCULAR HEMOGLOBIN 28.1 pg (27.0-33.4); MEAN CORPUSCULAR HGB CONC 33.2 g/dL (32.0-36.0); MEAN CORPUSCULAR VOLUME 85 fl (80-97); MONOCYTES % (AUTO) 8.3 % (3-13); PLATELET COUNT 144 10^3/uL (150-450); RED BLOOD COUNT 4.32 10^6/uL (3.72-5.28); RED CELL DISTRIBUTION WIDTH 13.8 % (11.5-14.0); SEGMENTED NEUTROPHILS % (AUTO) 67.8 % (42-78); TOTAL CELLS COUNTED % (AUTO) 100 %; WHITE BLOOD COUNT 4.4 10^3/uL (4.0-10.5)
[2018-09-08 05:29] LABS: HEMOGLOBIN 12.2 g/dL (12.0-15.5)
[2018-09-08 05:43] LABS: ANION GAP 5 (5-19); BLOOD UREA NITROGEN 18 mg/dL (7-20); CALCIUM 8.8 mg/dL (8.4-10.2); CARBON DIOXIDE 23 mmol/L (22-30); CHLORIDE 109 mmol/L (98-107); GLUCOSE 198 mg/dL (75-110); SODIUM 136.9 mmol/L (137-145)
[2018-09-08] MEDS: PANTOPRAZOLE SODIUM 40 MG TABLET.DR PO SCH ×2 (05:53→16:50)
[2018-09-08] MEDS ORDERED: GLIPIZIDE 10 MG TABLET PO SCH ×2 (08:00→10:00)
[2018-09-08] MEDS: INSULIN LISPRO 100 UNIT/ML 3 ML VIAL SUBCUT SCH ×3 (08:35→16:51)
[2018-09-08] MEDS ORDERED: ASPIRIN 81 MG TABLET, ENT COATED PO SCH (10:00)
[2018-09-08] MEDS ORDERED: POLYETHYLENE GLYCOL 3350 POWDER 17 GM/1 PACKET PO SCH (10:00)
[2018-09-08] MEDS ORDERED: ATENOLOL 50 MG TABLET PO SCH ×2 (10:00)
[2018-09-08] MEDS: ACETAMINOPHEN 325 MG TABLET PO PRN (12:58)
[2018-09-08] MEDS: ATENOLOL 50 MG TABLET PO SCH (12:58)
[2018-09-08] MEDS: AMLODIPINE BESYLATE 10 MG TABLET PO SCH (12:58)
[2018-09-08] MEDS: ENOXAPARIN SODIUM INJ 40 MG/0.4 ML DISP.SYRIN SUBCUT SCH (13:00)
[2018-09-08] MEDS: NORMAL SALINE 1000 ML 1,000 ML IV PRN (13:08)
[2018-09-08 18:08] VITALS: BP 146/82
--- NOTE | 2018-09-08 19:25 | PDOC DISCHARGE SUMMARY ---
General - Admit/Disc Date/PCP Admission Date/Primary Care Provider: 09/07/18 01:17 STEFANIA SNIDER MD Discharge Date: 09/08/18 - Discharge Diagnosis (1) Chest pain Is this a current diagnosis for this admission?: Yes (2) Headache Is this a current diagnosis for this admission?: Yes (3) T2DM (type 2 diabetes mellitus) Is this a current diagnosis for this admission?: Yes - Additional Information Resuscitation Status: Full Code Discharge Diet: Cardiac, Diabetic Discharge Activity: Activity As Tolerated, Balance Activity w/Rest Home Medications: Aspirin [Ecotrin 81 mg EC Tablet] 81 mg PO DAILY 09/07/18 Atenolol [Tenormin 50 mg Tablet] 50 mg PO Q12 09/07/18 Empagliflozin/Metformin HCl [Synjardy Xr 25-1,000 mg Tablet] 1 tab PO DAILY 09/07/18 Ergocalciferol (Vitamin D2) [Drisdol 50,000 unit (1.25MG) Capsule] 50,000 unit PO MO@1000 09/07/18 Furosemide [Lasix 40 mg Tablet] 40 mg PO DAILY 09/07/18 Glipizide [Glucotrol 10 mg Tablet] 10 mg PO DAILY 09/07/18 Ibuprofen/Famotidine [Duexis 800-26.6 mg Tablet] 1 tab PO TID 09/07/18 Polyethylene Glycol 3350 [Miralax Powder 17 gm/Packet] 1 packet PO DAILY 09/07/18 Simvastatin [Zocor 20 mg Tablet] 20 mg PO QHS 09/07/18 History of Present Illness History of Present Illness: JUAN C HASSAN is a 63 year old female,She came to the emergency room for evaluation of left sided headache of acute onset. She stated that she was at [facility] when she had episode of acute onset headache very intense, it was associated with chest pain but the chest pain is reproducible. In the emergency room she was extensively evaluated with CTA chest MRA of the head lumbar puncture.The evaluation was negative.There was no xanthochromia of the CSF, the pattern of the headache is not a thunderclap headache. The ED physician wanted patient admitted for observation of the chest pain , the chest pain is noncardiac in nature it is reproducible on palpation of the chest wall.Patient is a diabetic poorly controlled, noncompliant with the diabetes care, she does not follow regularly in the office Hospital Course Hospital Course: Patient was admitted for observation, management of chest pain, headache the chest pain is atypical she was seen by Dr. Ramirez cardiology, she is poorly compliant the headache is probably a primary headache syndrome, she has no history of migraine type headache Physical Exam Vital Signs: Temp Pulse Resp BP Pulse Ox 98.1 F 63 17 146/82 H 93 09/08/18 18:02 09/08/18 18:02 09/08/18 18:02 09/08/18 18:02 09/08/18 18:02 Intake & Output 09/07/18 09/08/18 09/09/18 06:59 06:59 06:59 Intake Total 1000 1774 Balance 1000 1774 Weight 85.6 kg 85.6 kg General appearance: PRESENT: no acute distress, well-developed, well-nourished Head exam: PRESENT: atraumatic, normocephalic Eye exam: PRESENT: conjunctiva pink, EOMI, PERRLA Ear exam: PRESENT: normal external ear exam Mouth exam: PRESENT: moist, tongue midline Neck exam: PRESENT: full ROM Respiratory exam: PRESENT: clear to auscultation [place] Cardiovascular exam: PRESENT: RRR, +S1, +S2 Pulses: PRESENT: normal dorsalis pedis pul, +2 pedal pulses bilateral Vascular exam: PRESENT: normal capillary refill GI/Abdominal exam: PRESENT: normal bowel sounds, soft Rectal exam: PRESENT: deferred Neurological exam: PRESENT: alert, CN II-XII grossly intact Psychiatric exam: PRESENT: appropriate affect, normal mood Skin exam: PRESENT: dry, intact, warm Results Laboratory Results: 09/08/18 04:43 09/08/18 04:43 09/08/18 09/08/18 04:43 04:43 WBC 4.4 RBC 4.32 Hgb 12.2 D Hct 36.7 MCV 85 MCH 28.1 MCHC 33.2 RDW 13.8 Plt Count 144 L Seg Neutrophils % 67.8 Lymphocytes % 18.6 Monocytes % 8.3 Eosinophils % 4.7 Basophils % 0.6 Absolute Neutrophils 3.0 Absolute Lymphocytes 0.8 Absolute Monocytes 0.4 Absolute Eosinophils 0.2 Absolute Basophils 0.0 Sodium 136.9 L Potassium 4.0 Chloride 109 H Carbon Dioxide 23 Anion Gap 5 BUN 18 Creatinine 0.92 Est GFR ( Amer) > 60 Est GFR (Non-Af Amer) > 60 Glucose 198 H Calcium 8.8 09/06/18 09/06/18 13:46 21:30 Troponin I < 0.012 < 0.012 Impressions: Abdomen/Pelvis CTA 09/06/18 00:00 IMPRESSION: No acute findings. Chest X-Ray 09/06/18 13:01 IMPRESSION: NO ACUTE FINDINGS. Head CT 09/06/18 13:02 IMPRESSION: MILD CHRONIC CHANGES OF ATROPHY AND MICROVASCULAR ISCHEMIA. NO ACUTE PROCESS. EVIDENCE OF ACUTE STROKE: NO. Head MRI 09/06/18 17:20 IMPRESSION: Negative for acute or sub-acute infarction.High signal intensity lesions scattered throughout the white matter on FLAIR imaging with distribution suggesting micro-vascular ischemic changes. No evidence of hemorrhage, mass, or extraaxial fluid collection. EVIDENCE OF ACUTE STROKE: NO. Brain MRI with MRA 09/06/18 17:24 IMPRESSION: No aneurysm.Atretic or absent left posterior communicating artery. Short segment moderate stenosis in the P2 segment of the left posterior cerebral artery. No other Significant stenosis. Neck MRA 09/06/18 17:24 IMPRESSION: There is narrowing of the origin of the right ICA. This may diminish flow in the right ICA, creating asymmetric flow causing differential intensity in the vessels as described above. However there is no other significant stenosis or evidence of dissection seen in the vessels of the neck or [place] of [place]. This apparent asymmetry could alternatively be technical artifact. No other significant abnormality. Chest/Abdomen CTA 09/06/18 19:58 IMPRESSION: No acute findings. Qualifiers - * PATIENT BEING DISCHARGED WITH ANY OF THE FOLLOWING DIAGNOSIS: No
[2018-09-08] MEDS ORDERED: SIMVASTATIN 10 MG TABLET PO SCH (22:00)
[2018-09-14] MEDS ORDERED: ERGOCALCIFEROL (VITAMIN D2) 50000 UNIT (1.25 MG) CAPSULE PO SCH (10:00)
== END 2018-09-08 18:53 | disposition home or self-care (01) ==
LOC: ER 12:29 → EH 09-07 01:17 → 5 09-07 03:23
PROVIDERS: ADMIT Internal Medicine; ATTEND Internal Medicine
PROC: 009U3ZX Drainage of Spinal Canal, Percutaneous Approach, Diagnostic (ICD-10-PCS; principal; 2018-09-07)
DX: R07.89 Other chest pain (principal); R51 Headache; E11.65 Type 2 diabetes mellitus with hyperglycemia; R05 Cough; R06.02 Shortness of breath; R42 Dizziness and giddiness; I10 Essential (primary) hypertension; E66.9 Obesity, unspecified; I69.351 Hemiplegia and hemiparesis following cerebral infarction affecting right dominant side; I66.22 Occlusion and stenosis of left posterior cerebral artery; Z79.899 Other long term (current) drug therapy; Z79.84 Long term (current) use of oral hypoglycemic drugs; Z91.19 Patient's noncompliance with other medical treatment and regimen; Z90.49 Acquired absence of other specified parts of digestive tract; Z87.01 Personal history of pneumonia (recurrent)
CPT/HCPCS: 93005 ×2; 99285; 96361; 96374; 96375; 36415 ×3; 87070; 87205; 82962 ×2; 85025 ×2; 85610; 85730; 89050; 82945; 84157; 80048; 80053; 84484; 80061; 70551; 70547; 70544; 71045; 70450; 71275; 74174; 93010 ×2; 62270; G0378 ×3; J3360; J3490 ×4; J1815 ×2; J1885; J2270 ×2; J1650 ×2; J2405; J7030 ×3; J7050